=== PATIENT | male | born 1955 | race Caucasian/White ===

== ENCOUNTER → 2016-05-20 08:23 | Outpatient (CLI) | payer MEDICARE ==
[2015-03-13 11:43] VITALS: BMI 22.4
[~2016-05-20 08:23] MED LIST: FOLIC ACID1 MG PO; LEXAPRO10 MG PO; METHOTREXATE2.5 MG PO; PRAVASTATIN SOD10 MG PO; PROAIR HFA8.5 GM INH; SPIRIVA18 MCG INH
== END | disposition home or self-care (01) ==
LOC: D.CT 08:23
DX: R91.8 Other nonspecific abnormal finding of lung field (principal)

== ENCOUNTER 2016-05-21 05:41 | Day surgery (SDC) | payer MEDICARE ==
[~2016-05-21] VITALS: Ht 182.9 cm; Wt 75.0 kg
[~2016-05-21 05:41] MED LIST changes: -LEXAPRO10 MG PO; -PRAVASTATIN SOD10 MG PO
[2016-05-21 07:30] LABS: HEMOGLOBIN 15.6 g/dL (13.5-17.5); MCHC 33.2 g/dL (31.0-37.0); MCV 96.3 fL (80.0-100.0); MEAN PLATELET VOLUME 9.9 fL (7.4-10.4); RBC 4.88 10x6/uL (4.20-6.10); RDW 14.2 % (11.5-14.5); WBC 7.6 10x3/uL (4.8-10.8)
[2016-05-21] MEDS ORDERED: PRAVASTATIN SOD10 MG PO (07:46)
[2016-05-21] MEDS ORDERED: LEXAPRO10 MG PO (07:47)
[2016-05-21 07:57] VITALS: BP 115/59; Ht 182.9 cm; Wt 75.0 kg
--- NOTE | 2016-05-21 10:22 | NUR ---
1015 HOB ELEVATED. SERVED FULL LIQUID DIET. TAKING LIQUIDS WITHOUT COMPLAINTS OF NAUSEA. NO EMESIS. Bri HARGROVE R.N.
--- NOTE | 2016-05-21 11:18 | NUR ---
1105 DRESSED. AWAKE & ALERT. GIVEN DISCHARGE INSTRUCTIONS, POST COLONOSCOPY DISCHARGE INSTRUCTIONS, MED REC., RTC APPT., & LIST FO NSAIDS TO AVOID. PT VOICED UNDERSTANDING. TO PRIVATE CAR PER WHEELCHAIR BY VOLUNTEER. HOME WITH SONKillian HARGROVE R.N.
--- NOTE | 2016-07-03 10:17 | OP ---
PATIENT NAME: ARLINE RODRIGUES MEDICAL RECORD: [id number] :51 LOCATION:D.OPS ADMISSION DATE: SURGEON: JEAN-PIERRE SWEENEY MD DATE OF OPERATION: 05/21/2016 PREOPERATIVE DIAGNOSES: History of colon polyps including a tubular adenoma with low grade dysplasia at 90 cm. POSTOPERATIVE DIAGNOSES: 1. History of colon polyps including a tubular adenoma with low grade dysplasia at 90 cm with polyp, either a new polyp or a recurrent polyp at 90 cm. This was sessile polyp. It is 1.2 cm in size. 2. Semi-pedunculated polyp on a fold at 15 cm within the rectum. This was 2.0 cm polyp. PROCEDURES: 1. Total colonoscopy to cecum. 2. Snare polypectomy times 1. 3. Hot biopsy forceps polypectomy times 1. SURGEON: Jean-Pierre Sweeney MD BREWMASTER: None. BLOOD LOSS: Minimal. ANESTHESIA: IV sedation. COMPLICATIONS: None. The risks, possible complications and alternatives to procedure were explained to the patient. He elects to proceed. The reason for the anesthesia staff being present during the procedure includes the fact the patient has a reactive airway. ENDOSCOPIC COURSE: The patient was conveyed to endoscopy suite electively on 05/21/2016. IV sedation was induced by anesthesia staff. The patient was placed in the Cash position. A digital rectal examination was performed. The prostate was firm without nodules and was symmetric. A colonoscope was inserted through the anus. It was easily advanced to the cecum. The prep was excellent. I slowly withdrew the endoscope. I dragged the folds. I irrigated and aspirated extensively. A polyp was noted at 90 cm and this was removed in its entirety utilizing the hot biopsy forceps polypectomy technique. I then withdrew into the rectum. A snare polypectomy was performed and was removed 95% of this semi-pedunculated polyp. The remaining base of the polyp was removed utilizing a hot biopsy forceps polypectomy technique. A retroflexed view was obtained in the rectum. This demonstrated enlarged internal hemorrhoids. I was able to then suction the polyp up against the end of the endoscope and I withdrew the polyp in its entirety. I will see the patient in my office in 2-3 weeks. I will plan for his next OPERATIVE REPORT [id number] ARLINE RODRIGUES colonoscopy can be in the GI lab in 3 years. TRANSINT:[id number] Voice Confirmation ID: [id number] DOCUMENT ID: [id number] JEAN-PIERRE SWEENEY MD at 1017 CC: [id number] DICTATION DATE: 05/21/16 0955 FIELD MECHANICAL METER TESTER: 05/21/16 1019 [facility] 05/21/16 [place] [id number] [place] [id number]
--- NOTE | 2016-07-03 10:17 | HP ---
PATIENT: ARLINE RODRIGUES MEDICAL RECORD: [id number] ACCOUNT: [id number] LOCATION:DSOFIA : 51 ADMISSION DATE: 05/21/16 HISTORY AND PHYSICAL EXAMINATION CHIEF COMPLAINT: History of colon polyps. HISTORY OF PRESENT ILLNESS: The patient has history of colon polyps. He has had 1 particularly worrisome polyp which was at 90 cm. It was a tubular adenoma with low-grade atypia. He has been asymptomatic. He is to undergo surveillance colonoscopy. PAST MEDICAL AND SURGICAL HISTORY: History of colon polyps, rheumatoid arthritis, COPD, emphysema and hyperlipidemia. SOCIAL HISTORY: He is a smoker, I advised him to quit smoking. ALLERGIES: No known drug allergies. HOME MEDICINES: He is on medicines for rheumatoid arthritis, Proventil inhaler, Pravachol, and Lexapro. PHYSICAL EXAMINATION: GENERAL: The patient does not appear acutely ill. He does appear chronically ill. VITAL SIGNS: Reviewed. HEAD: External ears appear normal. EYES: Extraocular movements are intact. NECK: Trachea is midline. CHEST: No intercostal retractions. PULMONARY: Nonlabored and no stridor. ABDOMEN: No peritonitis with movement. IMPRESSION: History of colon polyps including one tubular adenoma with low-grade atypia at 90 cm. PLAN: Will be surveillance colonoscopy. TRANSINT:[id number] Voice Confirmation ID: [id number] DOCUMENT ID: [id number] PHOEBE SWEENEY MD at 1017 CC: MOHSEN CHOPRA DO [id number] DICTATION DATE: 05/21/1617 PRICING LEAD: 05/21/16 0950 [facility] 05/21/16 [place] [id number] [place] [address]
== END 2016-05-21 11:05 | disposition home or self-care (01) ==
LOC: D.OPS 05:41
PROVIDERS: Anesthesiology
DX: Z12.11 Encounter for screening for malignant neoplasm of colon (principal); D12.5 Benign neoplasm of sigmoid colon; D12.3 Benign neoplasm of transverse colon; K64.8 Other hemorrhoids; F17.200 Nicotine dependence, unspecified, uncomplicated; M06.9 Rheumatoid arthritis, unspecified; J44.9 Chronic obstructive pulmonary disease, unspecified; E78.5 Hyperlipidemia, unspecified

== ENCOUNTER 2018-02-12 06:45 | Outpatient (CLI) | payer MEDICARE ==
[~2018-02-12] VITALS: Ht 182.9 cm; Wt 75.0 kg
--- NOTE | ~2018-02-12 | HEMODYNAMI ---
PATIENT:ARLINE RODRIGUES MEDICAL RECORD: [id number] : 51 LOCATION:DKillianCAT ADMISSION DATE: 02/12/18 Generatedon:02/12/201810:15 Patient name: ARLINE RODRIGUES Patient #: [id number] SSN: : 1955 Date of study: 02/12/2018 Page: Of Hemodynamic Procedure Report Patient Data Patient Demographics Procedure consent was obtained First Name: ARLINE Gender: Male Last Name: RAVI : 1955 [facility] Initial: IVAN Age: 63 year(s) Patient #: [id number] Race: Unknown Additional ID: [id number] Contact details [address]: [address] [place] [address] State: [place] City: [place] Zip code: [address] Past Medical History Allergies: No known allergies Admission Admission Data Admission Date: 02/12/2018 Admission Time: 6:45 Procedure Procedure Types Cath Procedure Diagnostic Procedure LHC LHC w/Coronaries PCI Procedure Coronary Stent Coronary Stent Initial Procedure Description Procedure Date Procedure Date: 02/12/2018 Procedure Start Time: 9:38 Procedure End Time: 10:12 Procedure Staff Name Function Yovani Roman MD Performing Physician Emily Hobbs RT Monitor Angely Pradhan RT Scrub Andrzej Bill RN Nurse Jeff Palma RN Nurse Chica Myers RN Nurse Eliecer Alcaraz RT Core Drill Operator Helper Procedure Data Cath Procedure Fluoroscopy Diagnostic fluoroscopy Total fluoroscopy Time: 8.6 time: 8.6 min min Diagnostic fluoroscopy Total fluoroscopy dose: dose: 1125 mGy 1125 mGy Contrast Material Contrast Material Type Amount (ml) Isovue 300 154 Entry Location Entry Primary Successful Side Size Upsize Upsize Entry Closure Russo ccessful Closure Location (Fr) 1 (Fr) 2 (Fr) Remarks Device Remarks Radial Right 6 Fr Mechanical artery Short Compression Estimated blood loss: 10 ml Diagnostic catheters Device Type Used For End Catheter Placement DIAGNOSTIC Franco 110cm Procedure 5Fr catheter ([id number]) Procedure Complications No complications Procedure Medications Medication Administration Route Dosage Oxygen etCO2 Nasal cannula 2 l/min Heparin Flush Bag added to field 2 bags (1000units/500ml NS) 0.9% NaCl I.V. 100 ml/hr Radial Cocktail added to field 1 syringe (Verapomil 2mg/Nitro 400mcg/Heparin 1500units) Fentanyl I.V. 50 mcg Versed I.V. 1 mg Fentanyl I.V. 50 mcg Versed I.V. 1 mg Radial Cocktail I.A. 1 syringe (Verapomil 2mg/Nitro 400mcg/Heparin 1500units) Fentanyl I.V. 50 mcg Fentanyl I.V. 50 mcg Heparin Bolus I.V. 7500 units Plavix P.O. 600 mg Hemodynamics Rest Heart Rate: 50 (bpm) Pressure Samples Time Site Value (mmHg) Purpose Heart Use Rate(bpm) 9:42 LV 116/-5,8 Snapshot 60 9:43 AO 97/56(74) Pullback 64 9:43 LV 107/-6,-8 Pullback 64 Gradients Valve Time Site 1 Site 2 Mean SEP/DFP Peak To Heart Use (mmHg) (sec/min) Peak Rate (mmHg) (bpm) Aortic 9:43 LV AO 17 5 10 64 107/-6,-8 97/56(74) Calculations Valve P-P Mean Valve Index Valve Source Name Gradient Area Flow (cm2) Aortic 10 17 10 17 Snapshots Pre Cath Intra NCS Post Cath Vital Signs Time Heart Resp SPO2 etCO2 NIBP (mmHg) Rhythm Pain Sedation Rate (ipm) (%) (mmHg) Status Level (bpm) 9:26:06 53 16 100 18 136/82(116) NSR 0 (11) 10(A) , No pain 9:30:18 50 16 99 31.6 114/72(85) NSR 0 (11) 10(A) , No pain 9:34:25 52 17 97 15 106/61(73) NSR 0 (11) 9(A) , No pain 9:38:29 51 17 96 27.8 96/61(75) NSR 0 (11) 9(A) , No pain 9:42:27 59 17 92 12.7 103/69(85) NSR 0 (11) 9(A) , No pain 9:46:31 59 16 92 12.7 97/57(81) NSR 0 (11) 9(A) , No pain 9:51:05 52 17 96 26.3 160/93(135) NSR 0 (11) 9(A) , No pain 9:55:19 56 16 98 26.3 132/90(112) NSR 0 (11) 9(A) , No pain 9:59:31 56 16 98 19.5 111/71(89) NSR 0 (11) 9(A) , No pain 10:03:35 57 17 98 33.1 102/67(78) NSR 0 (11) 9(A) , No pain 10:07:34 53 17 98 18.8 103/71(81) NSR 0 (11) 9(A) , No pain 10:12:23 57 16 99 29.3 140/80(93) NSR 0 (11) 10(A) , No pain Medications Time Medication Route Dose Verified Delivered Reason Not es Effectiveness by by 9:25:46 Oxygen etCO2 2 l/min Yovani Jeff Per physician Nasal Abel Palma RN cannula 9:25:56 Heparin Flush added 2 bags Yovani Jeff used for Bag to Abel Palma medical research scientist (1000units/500ml field NS) 9:26:04 0.9% NaCl I.V. 100 Yovani Jeff Per physician ml/hr Abel Palma RN 9:26:11 Radial Cocktail added 1 Yovani Jeff used for (Verapomil to syringe Abel Palma medical research scientist 2mg/Nitro field 400mcg/Heparin 1500units) 9:33:49 Fentanyl I.V. 50 mcg Yovani Jeff for sedation Abel Palma RN 9:33:55 Versed I.V. 1 mg Yvoani Jeff for anxiety Abel Palma RN 9:39:44 Fentanyl I.V. 50 mcg Yovani Jeff for sedation Abel Palma RN 9:39:49 Versed I.V. 1 mg Yovani Jeff for anxiety Abel Palma RN 9:39:57 Radial Cocktail I.A. 1 Yovani Yovani for (Verapomil syringe Abel roman 2mg/Nitro 400mcg/Heparin 1500units) 9:52:18 Fentanyl I.V. 50 mcg Yovani Jeff for sedation Abel Palma RN 9:54:18 Fentanyl I.V. 50 mcg Yovani Aguilar for sedation Abel Palma RN 9:54:54 Heparin Bolus I.V. 7500 Yovani Aguilar for units Abel Palma RN anticoagulation 10:11:06 Plavix P.O. 600 mg Yovani Aguilar for Abel Palma RN antiplatelet therapy Procedure Log Time Note 9:00:36 Eliecer Alcaraz RT(R) sent for patient. Start room use. 9:16:07 Diagnostic Cath Status : Elective 9:16:37 Time tracking: Regular hours (M-F 7:00 - 5:00) 9:16:41 Plan of Care:Hemodynamics will remain stable., Cardiac rhythm will remain stable., Comfort level will be maintained., Respiratory function will remain adequate., Patient/ family verbilizes understanding of procedure., Procedure tolerated without complication., Recovers from procedure without complications.. 9:16:54 Patient received from Pre/Post Procedure Room to CCL 2 Alert and oriented. Tansferred to table in Supine position. 9:16:56 Warm blankets applied, and cherelle hugger turned on for patient comfort. 9:16:56 Correct patient and procedure confirmed by team. 9:16:57 Signed procedure consent form obtained from patient. 9:16:58 ECG and BP/O2 sat monitors applied to patient. 9:19:21 H&P Date Dictated: 02/03/2018 Within 30 days and on chart., H&P Addendum completed by physician on day of procedure. (MUST COMPLETE FOR ALL OUTPATIENTS). 9:19:34 Family in waiting room. 9:19:37 Patient NPO since Midnight. 9:19:44 Patient allergic to No known allergies 9:19:47 Is the patient allergic to Iodine/contrast media? No. 9:19:48 Was the patient premedicated? Yes 9:19:51 Is patient on blood thinner?No 9:19:53 Patient diabetic? No. 9:19:58 Snore? Yes 9:20:00 Sleep apnea? No 9:20:21 Airway obstruction? Yes Emphysema 9:20:27 Patient pain scale 0/10 ?. 9:20:38 IV patent on arrival in left forearm with 0.9% NaCl at KVO. 9:20:45 Lab results completed and on chart. 9:20:50 Right Radial & Right Groin area was prepped with chlora-prep and draped in sterile fashion 9:20:51 Alarms reviewed by Abby N. 9::52 Sharps counted by scrub and verified by R.N. ::56 Vital chart was started 9:25:46 Oxygen 2 l/min etCO2 Nasal cannula was administered by Jeff Palma RN; Per physician; ::56 Heparin Flush Bag (1000units/500ml NS) 2 bags added to field was administered by Jeff Palma RN; used for procedure; 9::04 0.9% NaCl 100 ml/hr I.V. was administered by Jeff Palma RN; Per physician; 9:26:11 Radial Cocktail (Verapomil 2mg/Nitro 400mcg/Heparin 1500units) 1 syringe added to field was administered by Jeff Palma RN; used for procedure; 9:29:04 Use device set Radial Dx or PCI 9:29:09 SHEATH 6Fr Prelude Radial ([id number]) opened to sterile field. 9:31:03 ACIST Syringe (71070) opened to sterile field. 9:31:03 Medline Cath Pack ([id number]) opened to sterile field. 9:31:04 Bag Decanter (2002) opened to sterile field. 9:31:05 DIAGNOSTIC WIRE .035 260cm J wire (847721) opened to sterile field. 9:31:06 ACIST Hand Control (40640) opened to sterile field. 9:31:06 ACIST Manifold (24435) opened to sterile field. 9:31:07 Tegaderm 4 x 4 (1626W) opened to sterile field. 9:31:10 MBrace Wrist Support (879354542) opened to sterile field. 9:31:11 NEEDLE Cook 21G 4cm Radial (S08590) opened to sterile field. 9:31:32 Baseline sample Acquired. 9:31:40 Rhythm: sinus rhythm 9::42 Full Disclosure recording started 9:32:39 Physician arrived 9::40 --------ALL STOP TIME OUT------ 9:32:41 Final Timeout: patient, procedure, and site verified with staff and physician. All members of the team are in agreement. 9:32:43 Right Radial & Right Groin site verified by team. 9:32:47 Physical assessment completed. ASA score P 2 - A patient with mild systemic disease as per Yovani Roman MD. 9:32:52 Sedation plan: IV Moderate Sedation Medication:Versed, Fentanyl 9:33:49 Fentanyl 50 mcg I.V. was administered by Jeff Palma RN; for sedation; 9:33:55 Versed 1 mg I.V. was administered by Jeff Palma RN; for anxiety; 9:38:08 Procedure started. 9:38:15 Local anesthetic to right radial artery with Lidocaine 2% by Yovani Roman MD.INITIAL ACCESS ONLY 9:39:30 A 6 Fr Short sheath was inserted into the Right Radial artery 9:39:44 Fentanyl 50 mcg I.V. was administered by Jeff Palma RN; for sedation; 9:39:49 Versed 1 mg I.V. was administered by Jeff Palma RN; for anxiety; 9:39:57 Radial Cocktail (Verapomil 2mg/Nitro 400mcg/Heparin 1500units) 1 syringe I.A. was administered by Yovani oRman MD; for vasodilation; 9:41:25 A DIAGNOSTIC Franco 110cm 5Fr catheter (835571) was advanced over the wire and used for Procedure. 9:41:47 Zero performed for pressure channel P1 9:41:50 Zero performed for pressure channel P1 9:42:36 LV angiography performed. 9:43:41 EF : 60 % 9:43:47 RCA angiography performed. 9:44:16 LCA angiography performed. 9:47:09 Catheter removed. 9:48:54 BMW 300cm Swisher 2 J wire (5147850G) opened to sterile field. 9:48:55 TUBING High Pressure Extension Tubing (Abel) (NL0074D) opened to sterile field. 9:48:56 GUIDE 6FR XBLAD 3.5 catheter (65841350) opened to sterile field. 9:48:57 INFLATOR Merit BasixCompak (YD8058) opened to sterile field. 9:49:50 6 Fr XBLAD3.5 guide catheter was inserted over the wire 9:49:54 BMW wire advanced. 9:52:18 Fentanyl 50 mcg I.V. was administered by Jeff Palma RN; for sedation; 9:54:18 Fentanyl 50 mcg I.V. was administered by Jeff Palma RN; for sedation; 9:54:54 Heparin Bolus 7500 units I.V. was administered by Jeff Palma RN; for anticoagulation; 9:56:49 Wire advanced across lesion. 9:59:42 Place stent Inflation Number: 1 A INTEGRITY OTW 3.0 X 30 stent ([id number]) was prepped and advanced across the Mid LAD. The stent was deployed at 12 MIGUEL for 0:12 (min:sec). 10:02:20 Stent catheter was removed intact over wire. 10:06:36 Place stent Inflation Number: 1 A MAURY RX 3.0 x 15 stent ([id number]) was prepped and advanced across the Prox LAD. The stent was deployed at 12 MIGUEL for 0:17 (min:sec). 10:06:40 Stent catheter was removed intact over wire. 10:07:57 TR BAND Standard ([id number]) opened to sterile field. 10:08:02 Wire removed. 10:08:03 Guide catheter removed. 10:08:14 Sheath removed intact; hemostasis achieved with Mechanical Compression to the Right Radial artery. 10:08:56 Procedure ended.(Physican Out) 10:09:09 Fluoroscopy time 08.60 minutes. 10:09:15 Fluoroscopy dose: 1125 mGy 10:09:15 Flurop Dose total: 1125 10:09:19 Contrast amount:Isovue 300 154ml. 10:09:21 Sharps counted by scrub and verified by R.N. 10:09:25 TR band inflated with 12cc of air. 10:09:26 Insertion/operative site no bleeding no hematoma. 10:09:37 Post Procedure Pulses reassessed and unchanged 10:10:06 Post-procedure physical assessment completed. ASA score P 2 - A patient with mild systemic disease as per Yovani Roman MD. 10:10:21 Post procedure rhythm: w/ ST elevation 10:10:27 Estimated blood loss: 10 ml 10:10:28 Post procedure instruction explained to patient.Patient verbalizes understanding. 10:10:50 Procedure type changed to Cath procedure, Diagnostic procedure, LHC, LHC w/Coronaries, PCI procedure, Coronary Stent, Coronary Stent Initial 10:10:51 Procedure and supply charges have been captured, reviewed, submitted and are correct. 10:11:06 Plavix 600 mg P.O. was administered by Jeff Palma RN; for antiplatelet therapy; 10:11:34 Procedure Complication : No complications 10:11:46 Vital chart was stopped 10:11:48 See physician's report for complete and final results. 10:12:03 Report given to Pre/Post Procedure Room. 10:12:06 Patient transfered to Pre/Post Procedure Room with Stretcher. 10:12:08 Procedure ended. 10:12:08 Full Disclosure recording stopped 10:13:07 End room use (Document Last) Intervention Summary Intervention Notes Time ActionType Lesion and Equipment Used Action# Pressure Duration Attributes 9:59:42 Place stent Mid LAD INTEGRITY OTW 1 12 00:12 3.0 X 30 stent ([id number]) 10:06:36 Place stent Prox LAD MAURY RX 3.0 x 1 12 00:17 15 stent ([id number]) Device Usage Item Name Manufacture Quantity Catalog Number Hospital Part Current Minimal Lot# / Charge Number Stock Stock Serial# Code SHEATH 6Fr Merit 1 [id number] 704988 410613 5 Prelude Radial Medical ([id number]) ACIST Syringe Acist 1 66363 401053 054757 700104 20 (15208) Medical Systems Inc Medline Cath Cardinal 1 [id number] 360470 96020 437565 5 Pack Health ([id number]) Bag Decanter Microtek 1 2001S 005450 23823 349269 5 (2001S) Medical Inc. DIAGNOSTIC WIRE St [place] 1 718653 200882 501291 619641 30 .035 260cm J wire (210183) ACIST Hand Acist 1 57957 859449 917274 478227 5 Control (71917) Medical Systems Inc ACIST Manifold Acist 1 87246 760673 416308 438004 5 (23119) Medical Systems Inc Tegaderm 4 x 4 3M 1 1626W 480504 947628 892943 5 (1626W) MBrace Wrist Advanced 1 140-0250-00 090232 11294 245232 5 Support Vascular ([id number]) Dynamics NEEDLE Cook 21G BrainLAB 1 [id number] 023186 594866 873099 5 4cm Radial (K52846) DIAGNOSTIC Terumo 1 40-5617 251031 672869 635621 5 Franco 110cm 5Fr catheter (281767) BMW 300cm Kathleen 1 [id number] 735225 076927 793116 5 Swisher 2 J Vascular wire (6202368T) TUBING High Merit 1 [id number] 581882 94101 100849 10 Pressure Medical Extension Tubing (Roman) (WT7653F) GUIDE 6FR XBLAD Cardinal 1 [id number] 462188 508706 188593 10 3.5 catheter Health (37968735) INFLATOR Merit Merit 1 SX5497 319129 242916 801943 15 BasixCompak Medical (JE7504) INTEGRITY OTW Medtronic 1 [id number] 869630 629962 6 [id number] 3.0 X 30 stent ([id number]) MAURY RX 3.0 x Medtronic 1 [id number] 737261 8613978 368641 5 [id number] 15 stent ([id number]) TR BAND Terumo 1 [id number] 378064 722205 385020 40 Standard ([id number]) Signature Audit Valier Stage Time Signature Unsigned Intra-Procedure 02/12/2018 Emily Hobbs 10:15:06 AM RT(R) Signatures Monitor : Emily Hobbs Signature : RT Date : Time : [place] [address] [place] [address]
[~2018-02-12 06:45] MED LIST changes: +LEXAPRO10 MG PO; +PRAVASTATIN SOD10 MG PO
[2018-02-12 07:38] VITALS: BP 135/72; Ht 182.9 cm; Wt 75.0 kg
[2018-02-12 07:46] LABS: BASOPHILS 0.9 % (0-2); EOSINOPHILS 2.6 % (0-7); HEMATOCRIT 45.7 % (42.0-54.0); HEMOGLOBIN 15.3 g/dL (13.5-17.5); IMMATURE GRANULOCYTES 0.3 % (0-5); LYMPHOCYTES 18.1 % (15-50); MCHC 33.5 g/dL (31.0-37.0); MCV 95.6 fL (80.0-100.0); MEAN PLATELET VOLUME 9.6 fL (7.4-10.4); MONOCYTES 10.3 % (2-11); NEUTROPHILS 67.8 % (40-80); PLATELET COUNT 233 10x3/uL (130-400); RBC 4.78 10x6/uL (4.20-6.10); RDW 13.9 % (11.5-14.5)
[2018-02-12 07:52] LABS: CALC OSMOLALITY 278 mosm/kg (275-300); CALCIUM 8.9 mg/dL (8.5-10.1); CARBON DIOXIDE 26.1 mmol/L (21.0-32.0); CHLORIDE - SERUM 105 mmol/L (98-107); GLUCOSE 99 mg/dL (74-106); POTASSIUM - SERUM 4.5 mmol/L (3.5-5.1); SODIUM 140 mmol/L (136-145); UREA NITROGEN 12 mg/dL (7-18); eGFR NON AFRICAN AMERICAN 80 mL/min (90-120)
[2018-02-12] MEDS ORDERED: PLAVIX75 MG PO (10:24)
[2018-02-12] MEDS ORDERED: BAYER CHEWABLE81 MG PO (13:58)
== END 2018-02-12 14:30 | disposition home or self-care (01) ==
LOC: D.CATH 06:45
PROVIDERS: Internal Medicine Cardiovascular Disease
DX: I25.10 Atherosclerotic heart disease of native coronary artery without angina pectoris (principal); R94.39 Abnormal result of other cardiovascular function study

== ENCOUNTER 2018-03-05 06:54 | Outpatient (CLI) | payer MEDICARE ==
[~2018-03-05] VITALS: Ht 182.9 cm; Wt 75.0 kg
--- NOTE | ~2018-03-05 | HEMODYNAMI ---
PATIENT:ARLINE RODRIGUES MEDICAL RECORD: [id number] : 51 LOCATION:[facility] ADMISSION DATE: 03/05/18 Generatedon:03/05/20189:20 Patient name: ARLINE RODRIGUES Patient #: [id number] SSN: : 1955 Date of study: 03/05/2018 Page: Of Hemodynamic Procedure Report Patient Data Patient Demographics Procedure consent was obtained First Name: ARLINE Gender: Male Last Name: RAVI : 1955 [facility] Initial: IVAN Age: 63 year(s) Patient #: [id number] Race: Unknown Additional ID: [id number] Contact details Address: [address] [place] [address] State: [place] City: [place] Zip code: [address] Past Medical History Allergies: No known allergies Admission Admission Data Admission Date: 03/05/2018 Admission Time: 6:54 Admit Source: Other Lab Results Lab Result Date: 03/05/2018 Lab Result Time: 7:38 Biochemistry Name Units Result Min Max BUN mg/dl 15 --(--*-)-- 7 18 Creatinine mg/dl 1 --(--*-)-- 0.6 1.3 CBC Name Units Result Min Max Hematocrit % 43 --(*---)-- 42 54 Hemoglobin g/dl 14.7 --(-*--)-- 13.5 17.5 Procedure Procedure Types Cath Procedure Diagnostic Procedure Sedation Charges Moderate Sedation up to 45 minutes PCI Procedure Coronary Stent Coronary Stent Initial Procedure Description Procedure Date Procedure Date: 03/05/2018 Procedure Start Time: 8:59 Procedure End Time: 9:17 Procedure Staff Name Function Yovani Roman MD Performing Physician Jorden Frey RT Monitor Eliecer Alcaraz RT Scrub Chica Myers RN Nurse Andrzej Bill RN Signal Operator Technical Procedure Data Cath Procedure Fluoroscopy Diagnostic fluoroscopy Total fluoroscopy Time: 2.7 time: 2.7 min min Diagnostic fluoroscopy Total fluoroscopy dose: 360 dose: 360 mGy mGy Contrast Material Contrast Material Type Amount (ml) Isovue 300 57 Entry Location Entry Primary Successful Side Size Upsize Upsize Entry Closure Russo ccessful Closure Location (Fr) 1 (Fr) 2 (Fr) Remarks Device Remarks Radial Right 5 Fr Mechanical artery Compression Femoral Right 6 Fr Exoseal artery Short Estimated blood loss: 10 ml Procedure Complications No complications Procedure Medications Medication Administration Route Dosage 0.9% NaCl I.V. 100 ml/hr Oxygen etCO2 Nasal cannula 2 l/min Lidocaine 2% added to field 20 Heparin Flush Bag added to field 2 bags (1000units/500ml NS) Plavix P.O. 75 mg Radial Cocktail added to field 1 syringe (Verapomil 2mg/Nitro 400mcg/Heparin 1500units) Versed I.V. 2 mg Fentanyl I.V. 50 mcg Versed I.V. 2 mg Fentanyl I.V. 50 mcg Heparin Bolus I.V. 7500 units Hemodynamics Rest HGB: 14.7 (g/dl) Heart Rate: 53 (bpm) Snapshots Pre Cath Intra NCS Post Cath Vital Signs Time Heart Resp SPO2 etCO2 NIBP (mmHg) Rhythm Pain Sedation Rate (ipm) (%) (mmHg) Status Level (bpm) 8:40:20 51 14 100 18.5 143/81(99) SB 0 (11) 10(A) , No pain 8:44:40 52 14 100 31.2 139/83(100) SB 0 (11) 10(A) , No pain 8:48:55 50 18 100 26.7 124/78(100) SB 0 (11) 10(A) , No pain 8:53:13 51 15 98 30 105/66(85) SB 0 (11) 10(A) , No pain 8:57:22 51 13 96 18.5 106/63(78) SB 0 (11) 10(A) , No pain 9:01:30 51 14 96 29.7 105/67(85) SB 0 (11) 10(A) , No pain 9:05:38 63 13 98 23 106/70(90) NSR 0 (11) 10(A) , No pain 9:09:48 60 13 97 20.8 96/63(75) NSR 0 (11) 10(A) , No pain 9:13:54 58 12 98 28.2 92/62(72) SB 0 (11) 10(A) , No pain 9:18:00 60 14 91 28.9 94/61(81) SB 0 (11) 10(A) , No pain Medications Time Medication Route Dose Verified Delivered Reason Note s Effectiveness by by 8:26:23 0.9% NaCl I.V. 100 Yovani Chica used for ml/hr Abel Myers therapeutic massage technician 8:26:32 Oxygen etCO2 2 l/min Yovani Chica used for Nasal Abel Myers procedure cannula RN 8:26:38 Lidocaine 2% added 20ml Yovani Yovani for local to vial Abel Roman MD anesthetic field 8:26:44 Heparin Flush added 2 bags Yovani Yovani used for Bag to Abel Roman MD procedure (1000units/500ml field NS) 8:39:46 Plavix P.O. 75 mg Yovani Chica for Abel Myers antiplatelet RN therapy 8:44:16 Radial Cocktail added 1 Yovani Yovani used for (Verapomil to syringe Abel Roman MD procedure 2mg/Nitro field 400mcg/Heparin 1500units) 8:58:39 Versed I.V. 2 mg Yovani Chica for sedation Abel Myers RN 8:58:46 Fentanyl I.V. 50 mcg Yovani Chica for sedation Abel Myers RN 9:07:24 Versed I.V. 2 mg Yovani Chica for sedation Abel Myers RN 9:07:30 Fentanyl I.V. 50 mcg Yovani Chica for sedation Abel Myers RN 9:10:02 Heparin Bolus I.V. 7500 Yovani Chica for veri fied units Abel Myers anticoagulation with Dr. RYAN Roman Procedure Log Time Note 8:04:57 Informed consent obtained and on chart 8:05:01 Admit Source: Other 8:05:16 Diagnostic Cath status Elective 8:05:18 Time tracking: Regular hours (M-F 7:00 - 5:00) 8:05:21 Plan of Care:Hemodynamics will remain stable., Cardiac rhythm will remain stable., Comfort level will be maintained., Respiratory function will remain adequate., Patient/ family verbilizes understanding of procedure., Procedure tolerated without complication., Recovers from procedure without complications.. 8:05:26 H&P Date Dictated: 03/05/2018 New H&P dictated by physician.. 8:06:59 Lab Result : Creatinine 1 mg/dl 8::59 Lab Result : BUN 15 mg/dl 8::59 Lab Result : Hemoglobin 14.7 g/dl 8:59 Lab Result : Hematocrit 43 % 8:07:01 Lab results completed and on chart. 8:07:08 Patient allergic to No known allergies 8:26:23 0.9% NaCl 100 ml/hr I.V. was administered by Chica Myers RN; used for procedure; 8:26:32 Oxygen 2 l/min etCO2 Nasal cannula was administered by Chica Myers RN; used for procedure; 8:26:38 Lidocaine 2% 20ml vial added to field was administered by Yovani Roman MD; for local anesthetic; 8:26:44 Heparin Flush Bag (1000units/500ml NS) 2 bags added to field was administered by Yovani Roman MD; used for procedure; 8:27:36 Andrzej Bill RN sent for patient. Start room use. 8:33:56 Patient received from Pre/Post Procedure Room to CCL 1 Alert and oriented. Tansferred to table in Supine position. 8:33:57 Warm blankets applied, and cherelle hugger turned on for patient comfort. 8:33:58 Correct patient and procedure confirmed by team. 8:33:59 ECG and BP/O2 sat monitors applied to patient. 8:34:01 Pre-procedure instructions explained to patient. 8:34:02 Pre-op teaching completed and patient verbalized understanding. 8:39:08 Vital chart was started 8:39:46 Plavix 75 mg P.O. was administered by Chica Myers RN; for antiplatelet therapy; 8:44:16 Radial Cocktail (Verapomil 2mg/Nitro 400mcg/Heparin 1500units) 1 syringe added to field was administered by Yovani Roman MD; used for procedure; 8:52:00 Baseline sample Acquired. 8:52:04 Rhythm: sinus rhythm 8:52:06 Full Disclosure recording started 8:52:09 Is the patient allergic to Iodine/contrast media? No. 8:52:10 Is patient on blood thinner?Yes 8:52:12 ACC The patient was administered the following blood thiners within the last 24 hours: ACCPlavix 8:52:14 Patient diabetic? No. 8:52:17 Previous problem with sedation/anesthesia? No ? 8:52:18 Snore? Yes 8:52:19 Sleep apnea? No 8:52:20 Deviated septum? No 8:52:20 Opens mouth fully? Yes 8:52:21 Sticks out tongue? Yes 8:52:26 Airway obstruction? Yes emphysema 8:52:32 Dentures? No loose teeth 8:52:38 Modified Deny's test Ulnar < 7 seconds 8:52:39 Patient pain scale 0/10 ?. 8:52:45 IV patent on arrival in left forearm with 0.9% NaCl at [facility]. 8:52:48 Right Radial & Right Groin area was prepped with chlora-prep and draped in sterile fashion 8:52:49 Alarms reviewed by R. N. 8:52:49 Sharps counted by scrub and verified by R.N. 8:52:51 Use device set Radial Dx or PCI 8:52:52 ACIST Syringe (91603) opened to sterile field. 8:52:53 Medline Cath Pack ([id number]) opened to sterile field. 8:52:53 Bag Decanter (2002S) opened to sterile field. 8:52:54 ACIST Hand Control (91879) opened to sterile field. 8:52:55 ACIST Manifold (52552) opened to sterile field. 8:52:55 Tegaderm 4 x 4 (1626W) opened to sterile field. 8:52:56 MBrace Wrist Support ([id number]) opened to sterile field. 8:52:59 DIAGNOSTIC WIRE .035 260cm J wire (727812) opened to sterile field. 8:53:09 NEEDLE Cook 21G 4cm Radial (I16537) opened to sterile field. 8:53:16 SHEATH 6FR Slender ([id number]) opened to sterile field. 8:53:24 Physician arrived 8:53:25 --------ALL STOP TIME OUT------ 8:53:25 Final Timeout: patient, procedure, and site verified with staff and physician. All members of the team are in agreement. 8:53:26 Right Radial & Right Groin site verified by team. 8:53:29 Physical assessment completed. ASA score P 2 - A patient with mild systemic disease as per Yovani Roman MD. 8:53:32 Sedation plan: IV Moderate Sedation Medication:Versed, Fentanyl 8:56:39 INFLATOR Merit BasixCompak (VU8672) opened to sterile field. 8:56:40 BMW 300cm [place] 2 J wire ([id number]) opened to sterile field. 8:58:39 Versed 2 mg I.V. was administered by Chica Myers RN; for sedation; 8:58:46 Fentanyl 50 mcg I.V. was administered by Chica Myers RN; for sedation; 8:59:55 Procedure started. 8:59:58 Local anesthetic to right radial artery with Lidocaine 2% by Yovani Roman MD.INITIAL ACCESS ONLY 9:00:43 Zero performed for pressure channel P1 9:02:00 A 5 Fr sheath was inserted into the Right Radial artery 9:03:47 GUIDE 6FR XBLAD 3.5 catheter ([id number]) opened to sterile field. 9:04:59 6 Fr xblad 3.5 guide catheter was inserted over the wire 9:05:07 Guide Catheter removed radial spasm. 9:05:44 SHEATH 6FR [place] (UPC543) opened to sterile field. 9:05:52 Local anesthetic to right femoral artery with Lidocaine 2% by Yovani Roman MD.ADDITIONAL ACCESS 9:06:45 A 6 Fr Short sheath was inserted into the Right Femoral artery 9:06:54 6 Fr XBLAD 3.5 guide catheter was inserted over the wire 9:07:24 Versed 2 mg I.V. was administered by Chica Myers RN; for sedation; 9:07:30 Fentanyl 50 mcg I.V. was administered by Chica Myers RN; for sedation; 9:09:00 BMW wire advanced. 9:10:02 Heparin Bolus 7500 units I.V. was administered by Chica Myers RN; for anticoagulation; verified with Dr. Roman 9:10:44 Wire advanced across lesion. 9:12:56 Place stent Inflation Number: 1 A MAURY OTW 2.25 x 18 stent ([id number]) was prepped and advanced across the 1st Ob Andreina. The stent was deployed at 13 MIGUEL for 0:10 (min:sec). 9:12:58 Stent catheter was removed intact over wire. 9:12:59 Wire removed. 9:13:05 Guide catheter removed. 9:13:09 TR BAND Standard ([id number]) opened to sterile field. 9:13:15 EXOSEAL 6Fr (EX600) opened to sterile field. 9:14:05 Sheath removed intact; hemostasis achieved with Exoseal to the Right Femoral artery. 9:14:24 Sheath removed intact; hemostasis achieved with Mechanical Compression to the Right Radial artery. 9:14:27 Procedure ended.(Physican Out) 9:14:57 Fluoroscopy time 02.70 minutes. 9:15:01 Flurop Dose total: 360 9:15:01 Fluoroscopy dose: 360 mGy 9:15:05 Contrast amount:Isovue 300 57ml. 9:15:06 Sharps counted by scrub and verified by R.N. 9:15:09 TR band inflated with 12cc of air. 9:15:10 Insertion/operative site no bleeding no hematoma. 9:15:13 Post-op/insertion site Right Femoral artery dressed using a 4 x 4 and Tegaderm. 9:15:17 Post right femoral artery:stable, soft, clean and dry 9:15:28 Post right radial artery:stable, soft, clean and dry 9:15:57 Post Procedure Pulses reassessed and unchanged 9:16:00 Post-procedure physical assessment completed. ASA score P 2 - A patient with mild systemic disease as per Yovani Roman MD. 9:16:02 Post procedure rhythm: unchanged. 9:16:30 Estimated blood loss: 10 ml 9:16:31 Post procedure instruction explained to patient.Patient verbalizes understanding. 9:16:32 Patient needs reinforcement of post procedure teaching. 9:17:12 Procedure type changed to Cath procedure, Diagnostic procedure, Sedation Charges, Moderate Sedation up to 45 minutes, PCI procedure, Coronary Stent, Coronary Stent Initial 9:17:33 Procedure and supply charges have been captured, reviewed, submitted and are correct. 9:17:37 Procedure Complication : No complications 9:17:39 Vital chart was stopped 9:17:40 See physician's report for complete and final results. 9:17:41 Report given to Pre/Post Procedure Room. 9:17:43 Patient transfered to Pre/Post Procedure Room with Stretcher. 9:17:45 Procedure ended. 9:17:45 Full Disclosure recording stopped 9:17:48 End room use (Document Last) Intervention Summary Intervention Notes Time ActionType Lesion and Equipment Action# Pressure Duration Attributes Used 9:12:56 Place stent 1st Ob Andreina MAURY OTW 2.25 1 13 00:10 x 18 stent ([id number]) Device Usage Item Name Manufacture Quantity Catalog Hospital Part Current Minim al Lot# / Number Charge Number Stock Stock Serial# Code ACIST Syringe Acist 1 90237 784646 232062 076498 20 (32757) Medical Systems Inc Medline Cath Medline 1 [id number] 637330 05646 939926 5 Pack ([id number]) Bag Decanter Microtek 1 2001S 683888 61125 094426 5 (2001S) Medical Inc. ACIST Hand Acist 1 58554 553079 002105 551552 5 Control Medical (54491) Systems Inc ACIST Acist 1 85488 636655 432069 308691 5 Manifold Medical (30145) Systems Inc Tegaderm 4 x 3M 1 1626W 415113 274099 301203 5 4 (1626W) MBrace Wrist Advanced 1 140-0250-00 257337 07837 409506 5 Support Vascular ([id number]) Dynamics DIAGNOSTIC St [place] 1 341323 454586 775143 710354 30 WIRE .035 260cm J wire (240031) NEEDLE [facility] 1 Y90075 356104 484541 004449 5 21G 4cm Radial (G74876) SHEATH 6FR Terumo 1 [id number] 371058 365721 905513 40 Slender ([id number]) INFLATOR Merit 1 HY0662 376147 526864 277341 15 [facility] Medical BasixCompak (IC9039) BMW 300cm Kathleen 1 [id number] 904452 810112 716978 5 [place] 2 J Vascular wire (0941320T) GUIDE 6FR Cardinal 1 [id number] 284298 577256 077235 10 XBLAD 3.5 Health catheter (15464858) SHEATH 6FR Terumo 1 KVJ977 050530 589901 649746 40 [place] (GEN973) MAURY OTW 2.25 Medtronic 1 [id number] 457541 08356 830389 5 [id number] x 18 stent ([id number]) TR BAND Terumo 1 [id number] 098844 236197 868442 40 Standard ([id number]) EXOSEAL 6Fr Cardinal 1 EX600 622894 083142 058197 10 (EX600) Health Signature Audit Assonet Stage Time Signature Unsigned Intra-Procedure 03/05/2018 Jorden Frey 9:20:11 AM RT(R) Signatures Monitor : Jorden Frey RT Signature : Date : Time : [place] [id number] [facility] [place] [address]
[~2018-03-05 06:54] MED LIST changes: +BAYER CHEWABLE81 MG PO; +PLAVIX75 MG PO
[2018-03-05 07:31] VITALS: BP 141/75; Ht 182.9 cm; Wt 75.0 kg
[2018-03-05 07:43] LABS: BASOPHILS 0.6 % (0-2); EOSINOPHILS 3.1 % (0-7); HEMOGLOBIN 14.7 g/dL (13.5-17.5); IMMATURE GRANULOCYTES 0.3 % (0-5); LYMPHOCYTES 15.5 % (15-50); MCHC 34.2 g/dL (31.0-37.0); MCV 93.5 fL (80.0-100.0); MEAN PLATELET VOLUME 9.7 fL (7.4-10.4); MONOCYTES 11.8 % (2-11); NEUTROPHILS 68.7 % (40-80); PLATELET COUNT 216 10x3/uL (130-400); RDW 13.9 % (11.5-14.5); WBC 6.8 10x3/uL (4.8-10.8)
[2018-03-05 07:50] LABS: CALC OSMOLALITY 278 mosm/kg (275-300); CALCIUM 8.7 mg/dL (8.5-10.1); CARBON DIOXIDE 24.8 mmol/L (21.0-32.0); CHLORIDE - SERUM 106 mmol/L (98-107); GLUCOSE 102 mg/dL (74-106); POTASSIUM - SERUM 4.3 mmol/L (3.5-5.1); SODIUM 139 mmol/L (136-145); UREA NITROGEN 15 mg/dL (7-18); eGFR NON AFRICAN AMERICAN 80 mL/min (90-120)
== END 2018-03-05 14:15 | disposition home or self-care (01) ==
LOC: D.CATH 06:54
PROVIDERS: Internal Medicine Cardiovascular Disease
DX: I25.119 Atherosclerotic heart disease of native coronary artery with unspecified angina pectoris (principal); J43.9 Emphysema, unspecified; M06.9 Rheumatoid arthritis, unspecified; E78.5 Hyperlipidemia, unspecified; F12.90 Cannabis use, unspecified, uncomplicated; Z79.02 Long term (current) use of antithrombotics/antiplatelets; Z79.82 Long term (current) use of aspirin; Z79.899 Other long term (current) drug therapy; Z95.5 Presence of coronary angioplasty implant and graft

== ENCOUNTER → 2019-03-09 09:23 | Outpatient (CLI) | payer OTHER ==
[2018-03-05 07:31] VITALS: BMI 22.4
== END | disposition home or self-care (01) ==
LOC: D.HCCARDIO 09:23
PROVIDERS: ATTEND Internal Medicine Cardiovascular Disease
DX: I25.10 Atherosclerotic heart disease of native coronary artery without angina pectoris (principal)

== ENCOUNTER → 2019-07-19 13:55 | Outpatient (CLI) | payer OTHER ==
[2018-03-05 07:31] VITALS: BMI 22.4
== END | disposition home or self-care (01) ==
LOC: D.HCCECHO 13:55
PROVIDERS: ATTEND Internal Medicine Cardiovascular Disease
DX: I25.10 Atherosclerotic heart disease of native coronary artery without angina pectoris (principal)